=== PATIENT | male | born 1955 | race Caucasian/White ===

== ENCOUNTER 2025-04-29 10:36 | Outpatient (CLI) | payer MEDICARE, SELFPAY ==
--- NOTE | 2025-04-29 10:30 | USCV_ITS ---
ChelseyJoni talbot Age: 69 Gender: M : 1955 Exam Date: 04/29/2025 10:48 Ordering Phys: Nacho Young DO Technologist: MIKE Exam Location: [facility] – [place] Indication: left ankle pain swelling HISTORY: Lower extremity edema-LEFT ANKLE PROCEDURES: Venous duplex imaging was performed in only the left lower extremity. The following venous structures were evaluated: common femoral vein, profunda vein, proximal portion of the greater saphenous vein, superficial femoral vein, and the popliteal vein. In addition, the posterior tibial and peroneal trunk were evaluated. FINDINGS: Normal 2-D Doppler and augmentation and compressibility throughout the lower extremity venous structures. Additional imaging through the proximal calf veins also reveals no thrombus. Limited evaluation of the greater saphenous vein is patent with no thrombus. CONCLUSIONS No evidence of left lower extremity DVT. Francisco Ortega MD (Electronically Signed) Final Date: 29 April 2025 13:41 S
== END 2025-04-29 10:37 | disposition home or self-care (01) ==
PROVIDERS: Visit Provider Family Medicine
DX: I82.402 Acute embolism and thrombosis of unspecified deep veins of left lower extremity (principal)
CPT/HCPCS: 93971